=== PATIENT | female | born 2000 | race Hispanic/Latino ===

== ENCOUNTER 2019-09-25 05:26 | Outpatient (CLI) | payer OTHER ==
[~2019-09-25] VITALS: Ht 165.1 cm; Wt 67.7 kg
[2019-09-25 05:42] VITALS: BP 126/80
--- NOTE | 2019-09-25 05:50 | IPNPDOC ---
Text Note Date of Service The patient was seen on 09/25/19. NOTE Triage Note [place] is a 19yo with SIUP at 39w2d by lmp presenting with regular painful ctx since 1pm yesterday. No LOF, no vaginal bleeding, good movement. Vitals wnl, afebrile General: WDWN, resting comfortably in bed in NAD Abdomen: soft, gravid, NTTP SCE (RN as kitchen steward): 380/-1, posterior/soft Cat I FHRT thus far with bl 140, +accels, -decels, mod rober [place]: ctx q5min Assessment: [place] is a 19yo with SIUP at 39w2d by lmp in likely latent labor. SCE /-1, cephalic, ctx 5min. Cat I FHRT. Vitals wnl, benign exam. Plan: -recheck in 2hr to assess if patient is going into active labor- if she is, will admit, and if no cervical change, will discharge to home -safe to proceed MD Zabrina Smalls Katrina D MD September 25, 2019 05:50
[2019-09-25 06:02] VITALS: BP 111/60
[2019-09-25] MEDS ORDERED: PRENTAB9 PO (06:06)
[2019-09-25] MEDS ORDERED: FOLI400T PO (06:06)
== END 2019-09-25 08:35 | disposition home or self-care (01) ==
LOC: M LDO 05:26
PROVIDERS: ATTEND Obstetrics & Gynecology
DX: O60.03 Preterm labor without delivery, third trimester (principal); Z3A.39 39 weeks gestation of pregnancy
CPT/HCPCS: 59025; G0378; G0463

== ENCOUNTER 2019-09-25 16:27 | Inpatient (IN) | payer OTHER ==
[2019-09-25] VITALS (9 sets, daily range): BP systolic 109–139; BP diastolic 55–85
[~2019-09-25 16:27] MED LIST: FOLI400T PO; PRENTAB9 PO
[2019-09-25] MEDS ORDERED: LR 1,000 ML IV SCH (17:03)
[2019-09-25] MEDS ORDERED: LACTATED RINGER'S 1000 ML IV ONE (17:15)
[2019-09-25 18:08] LABS: HEMATOCRIT 34.8 % (36.0-47.0); HEMOGLOBIN 12.4 g/dl (12.0-15.5); MEAN CORPUSCULAR HEMOGLOBIN 33.3 pg (27.0-33.0); MEAN CORPUSCULAR HGB CONC 35.6 g/dl (32.0-36.5); MEAN CORPUSCULAR VOLUME 93.5 fl (80.0-96.0); PLATELET COUNT, AUTOMATED 181 10^3/uL (150-450); RED BLOOD COUNT 3.72 10^6/uL (4.00-5.40); WHITE BLOOD COUNT 11.4 10^3/uL (4.0-10.0)
[2019-09-25] MEDS ORDERED: OXYTOCIN 30 UNITS IN 0.9% NaCl 500ML IV BAG (J2590) As Ordered ONE (20:08)
[2019-09-25 22:13] LABS: CORD GAS ABE A -6.4; CORD GAS ABE V -5.1; CORD GAS HCO3 A 16.1 MEQ/L; CORD GAS HCO3 V 17.4 MEQ/L; CORD GAS O2 SAT A 84.6 %; CORD GAS O2 SAT V 84.7 %; CORD GAS PCO2 A 26.3 mmHg; CORD GAS PCO2 V 27.5 mmHg; CORD GAS PH A 7.404 UNITS; CORD GAS PH V 7.418 UNITS; CORD GAS PO2 A 39.4 mmHg; CORD GAS PO2 V 38.2 mmHg; CORD GAS TCO2 A 16.9 MEQ/L; CORD GAS TCO2 V 18.2 MEQ/L
[2019-09-25] MEDS ORDERED: OXYTOCIN INJ 10 UNITS/ML VIAL (J2590) IV ONE (22:15)
[2019-09-25] MEDS ORDERED: OXYTOCIN DRIP 30 UNITS in IV 1 EA IV ONE (22:15)
[2019-09-25] MEDS ORDERED: DIBUCAINE 1% OINTMENT 30GM TOP PRN (22:15)
[2019-09-25] MEDS ORDERED: ANUSOL HC CREAM 30GM TOP PRN (22:15)
[2019-09-25] MEDS ORDERED: IBUPROFEN 800 MG TAB PO PRN (22:15)
[2019-09-25] MEDS ORDERED: ACETAMINOPHEN TAB 650MG DOSE (2X325MG) PO PRN (22:15)
[2019-09-25] MEDS ORDERED: ACETAMINOPHEN 500 MG TAB PO PRN (22:15)
[2019-09-25] MEDS ORDERED: RHOGAM 300 MCG (1500 IU) INJ (J2790) IM SCH (22:15)
[2019-09-25] MEDS ORDERED: METHYLERGONOVINE MALEATE 0.2 MG TAB PO PRN (22:15)
[2019-09-25] MEDS ORDERED: MOM 30ML SUSPENSION UDC PO PRN (22:15)
[2019-09-25] MEDS ORDERED: IBUPROFEN 600 MG TAB PO PRN (22:15)
[2019-09-25] MEDS ORDERED: MEASLES,MUMPS,RUBELLA VACCINE INJ (MMR-II) (90707) SC SCH (22:15)
[2019-09-25] MEDS ORDERED: DOCUSATE SODIUM 100 MG CAP PO PRN (22:15)
[2019-09-26 01:01] VITALS: BP 112/73
[2019-09-26 06:10] VITALS: BP 108/74
[2019-09-26 08:04] LABS: HEMATOCRIT 34.4 % (36.0-47.0); HEMOGLOBIN 12.3 g/dl (12.0-15.5); MEAN CORPUSCULAR HEMOGLOBIN 33.6 pg (27.0-33.0); MEAN CORPUSCULAR HGB CONC 35.8 g/dl (32.0-36.5); PLATELET COUNT, AUTOMATED 194 10^3/uL (150-450); RED BLOOD COUNT 3.66 10^6/uL (4.00-5.40); WHITE BLOOD COUNT 18.3 10^3/uL (4.0-10.0)
[2019-09-26] MEDS: PRENATAL VITAMINS CHEWABLE TABLET PO SCH (09:00)
--- NOTE | 2019-09-26 13:16 | IPN ---
DATE: 09/25/2019 19-year-old 1 admitted at 39 and 2 with no vaginal bleeding, no vaginal loss, good movements and painful contractions. She was checked at 0600 hours and she was 3, 80, -1, posterior and soft. She was checked 2 hours later; she was still 3, 80, -1, posterior and soft. Category one strip. I anticipate this lady will come back in active labor. At the present time, she has a category one strip. No change in her cervix, mostly like [place] Wright contractions. Both and the patient expressed understanding of the plan of care. Precautions were given, kick chart, premature rupture of membranes and bleeding. The patient was discharged undelivered to return as needed.
[2019-09-26 18:20] VITALS: BP 102/59
--- NOTE | 2019-09-26 19:19 | HPE ---
DATE OF ADMISSION: 09/25/2019 A 19-year-old 1, para 0, last menstrual period (LMP) 12/24/2018, estimated date of confinement (EDC) 09/30/2019 at 39 and 5 weeks gestation with contractions. On examination, she is 6 cm, 100% effaced with moderate show and bulging membranes, -2 station. Labs are B positive, hepatitis B negative, RPR negative, rubella immune, Varicella immune. Pap normal. Urine negative. Gonorrhea and chlamydia are negative. One-hour glucose was 83. GBS is negative. Blood pressure 115/75, respirations are 20, pulse 104, temperature 98.0. On examination, distressed female. Symphysis fundus height is 40, vertex occiput anterior (OA), 100% effaced, 6 cm with show, category 1 strip. Her mucous membranes are quite dry and cracked, because she is mouth breathing and has not had anything to eat or drink since 0600 hours this morning. She is normocephalic, atraumatic. Neck: Full range of motion. Pupils equal and reactive to light. Distal pulses are symmetric. No evidence of deep vein thrombosis (DVT), pulmonary embolism (PE), or superficial phlebitis. Chest is clear bilaterally to bases. No wheezes or rhonchi. No costovertebral angle (CVA) tenderness. Four-quadrant bowel sounds are noted. She has no rashes, lesions, or pruritus. No arthralgia, myalgia. No complaint joint pain, cough, wheeze, shortness of breath, or dyspnea on exertion. No bruising. Neurologic complete. No incontinency, urgency, or frequency. No nausea, vomiting, diarrhea, or constipation. No heat or cold sensitivity. No diabetic issues. She has no abnormal Pap smears or sexually transmitted diseases (STDs). PAST MEDICAL AND SURGICAL HISTORY: Unremarkable. FAMILY HISTORY: Noncontributory. No alcohol or drug abuse. She is to a soldier. No domestic violence. Good support. ALLERGIES: No known allergies. We discussed the consent for vaginal delivery through an interpreter translator. She speaks [place] only. Delivery of the baby through the vagina with possible use of forceps or vacuum devices if needed to maternal or indications. These are devices that consist with vaginal delivery when normal pushing efforts cannot achieve delivery on their own or when delivery is needed in emergency for baby's well being, medications that may be used to augment or induce labor or to achieve a vaginal delivery. An episiotomy may be required to help the baby deliver vaginally, augment, or help the labor to achieve vaginal delivery. Also may require repair of any lacerations, tears of the vagina, vulva that are created by delivery. In some cases, emergencies arise, such as emergency section, which are done for only or maternal indications and will be discussed with the provider. Delivery through an abdominal incision, and it may be safer for mother and baby to continue than labor and is only performed, again, for clinical indications. Risks of vaginal delivery include, but are not limited to, bleeding, infection, injury to vagina, pelvic structures, injury to baby, damage to the uterus, reaction to anesthesia, uterine rupture, hysterectomy for life-threatening bleeding or . Medications used to induce or augment labor may increase risk of infection, uterine tachysystole, uterine rupture, heart abnormalities, need for emergency section, hemorrhage. Additional risks use of forceps and vacuum include scratches, hematomas to the head, or intracranial bleed. The patient expressed understanding through her interpreter translator. Safe to proceed.
[2019-09-27 06:00] VITALS: BP 111/68
--- NOTE | 2019-09-27 07:30 | IPNPDOC ---
Progress Note Date of Service: September 27, 2019 Day#: 2 Progress Note SUBJECT: Patient is a 19 yo s/p ppd #2. patient speaks setswana with some spanish and spouse able to translate for patient. Today patient without concerns. She has been ambulating, voiding spontaneously without issue and tolerating regular diet. Breast feeding without issue. Reports lochia is like a normal period. Patient plans on IUD for contraceptive. OBJECTIVE: VITAL SIGNS: Within normal limits, afebrile. Alert and oriented times three. Abdomen: Fundus firm at U-2. Soft, NTTP. le: no edema/erythema/tenderness A/P: ppd #2, doing well. encourage BF. discussed routine ppc. IUD can be placed after 6wks . discharge today if baby discharged. Lauren, DO VS, I&O, 24H, [facility] Vital Signs/I&O Vital Signs Date Time Temp Pulse Resp B/P (MAP) Pulse Ox O2 Delivery O2 Flow Rate FiO2 09/27/19 06:00 98.9 76 16 111/68 (82) 09/26/19 01:01 97 Laboratory Data 24H LABS Laboratory Tests 2 09/26/19 07:52: Nucleated Red Blood Cells % (auto) 0.0 CBC/BMP Laboratory Tests 09/26/19 07:52 JEN POWERS DO September 27, 2019 07:30
--- NOTE | 2019-09-27 07:39 | OBDS ---
[facility] Obstetrical Discharge Sum. Obstetrical Discharge Summary Date: September 27, 2019 Time: 02:00 : 1 Term: 1 Pre-term: 0 Abortions: 0 Livin VDRL: Non-Reactive Rh: Positive Rubella: Immune Infant Sex: Male Weight: pounds, grams (2870) Anesthesia: Regional Anesthesia A/P, Post Course List any complications Admission diagnosis: Labor at 39+5wks gestation Discharge diagnosis: Condition at Discharge: stable Discharge Instructions: Home Activity: as tolerated Diet: regular Medications: filled at [facility] Follow-up: 6wks hospital course: Patient admitted for labor at 39+5wks gestation. Patient progressed to have a spontaneous vaginal delivery. course uncomplicated and patient discharged on day #2. JEN POWERS DO September 27, 2019 07:39
[2019-09-27] MEDS ORDERED: INFLUENZA QUADRIVALENT PF VACCINE 0.5ML SYRINGE (90686) IM ONE (09:00)
[2019-09-27] MEDS: PRENATAL VITAMINS CHEWABLE TABLET PO SCH (10:06)
--- NOTE | 2019-09-27 11:58 | IPN ---
DATE: 09/25/2019 This lady is a 1, para 0 admitted in active labor. She has had very slow progress. Now she is about 8 cm, 100% effaced -2 station and OT. We discussed artificial rupture of the membranes to enhance the contractions and more being effective. The patient has again declined analgesics. An ARM was done draining clear Liqua and we have a category one strip and we are safe to proceed.
--- NOTE | 2019-09-27 13:14 | IPN ---
DATE: 09/26/2019 This lady is a 19-year-old 1, now para 1, had a spontaneous vaginal delivery at 39 and 5 weeks of gestation, male 6 pounds 5 ounces, 2870 grams, scores of 9 and 9 at 1 and 5 minute respectively. Arterial pH 7.400, base excess -6.4, venous pH 7.41, base excess -5.1. We discussed phlebitis, cystitis, mastitis, endometritis and cellulitis, diet, exercise, pain manage, perineal, breast and wound care. All through harvest crew supervisor as this patient speaks only Swedish. Her vitals this morning, her blood pressure 108/74, respirations are 18, pulse 76 and temperature is 97.8. Her admitting hemoglobin was 12.4, hematocrit 34.8 and platelets were 181. The patient plans on discharge tomorrow morning. Follow up with [facility] for 6-week checkup and the baby will be taken to the appropriate benefits consultant at [place]. All questions were answered. 20-minute discussion through the harvest crew supervisor. Plans are for discharge tomorrow. The patient declined circumcision.
--- NOTE | 2019-10-02 15:59 | DN ---
DATE: 09/25/2019 This is a 19-year-old 1, para 0 at 39 and 4 of gestation who came in in spontaneous labor. She had full dilatation. After an artificial rupture of membranes (AROM) with clear liquor, delivered a live- male infant over intact perineum, weighing 6 pounds 5 ounces, 2870 grams, scores of 9 and 9 at one and five minutes, respectively. Cord around neck times one. Arterial and venous pH were performed. The arterial pH was 7.40, base excess -6.4. Venous pH was 7.41, base excess -5.1. The placenta delivered spontaneously thereafter. Three vessel in the cord. Membranes and tissues intact. Anterior, posterior, and lateral grimm were intact. Sphincter was tight. Uterus contracted well down on Pitocin. The patient and baby tolerating procedure well.
== END 2019-09-27 13:50 | disposition home or self-care (01) | DRG 807 ==
LOC: M LDO 16:27 → M LDI 17:01 → M OBS 09-26 00:42
PROVIDERS: ADMIT Obstetrics & Gynecology; ATTEND Obstetrics & Gynecology
PROC: 10E0XZZ Delivery of Products of Conception, External Approach (ICD-10-PCS; principal; 2019-09-25)
PROC: 10907ZC Drainage of Amniotic Fluid, Therapeutic from Products of Conception, Via Natural or Artificial Opening (ICD-10-PCS; 2019-09-25)
DX: O69.81X0 Labor and delivery complicated by cord around neck, without compression, not applicable or unspecified (principal); Z37.0 Single live birth; Z3A.39 39 weeks gestation of pregnancy